=== PATIENT | female | born 1965 | race Caucasian/White ===

== ENCOUNTER 2018-04-30 10:32 | Emergency (ER) | payer OTHER ==
[2018-04-30 11:09] VITALS: BP 146/91
--- NOTE | 2018-04-30 12:21 | UC ---
Throat Pain/Nasal Min HPI - HPI Summary HPI Summary: Pt c/o cough, nasal congestion, sinus pressure and pain X 6 weeks. - History of Current Complaint Chief Complaint: UCGeneralIllness Stated Complaint: CHEST/HEAD CONGESTION/BILAT EAR PAIN Time Seen by Provider: 04/30/18 11:59 Hx Obtained From: Patient ?: No Onset/Duration: Gradual Onset, Lasting Weeks, Still Present Severity: Moderate Pain Intensity: 5 Cough: Productive Associated Signs & Symptoms: Positive: Sinus Discomfort, Nasal Discharge - Epiglottits Risk Factors Epiglottis Risk Factors: Negative - Allergies/Home Medications Allergies/Adverse Reactions: Allergies Allergy/AdvReac Type Severity Reaction Status Date / Time No Known Allergies Allergy Verified 04/30/18 11:05 Home Medications: Home Medications Escitalopram * [Lexapro *] 20 mg PO DAILY 04/30/18 [History Confirmed 04/30/18] Ibuprofen TAB* [Motrin TAB* 600 MG] 600 mg PO Q6H PRN 04/30/18 [History Confirmed 04/30/18] Levothyroxine TAB* [Synthroid TAB*] 50 mcg PO DAILY 04/30/18 [History Confirmed 04/30/18] Omeprazole CAP(NF) [PriLOSEC CAP(NF)] 20 mg PO DAILY 04/30/18 [History Confirmed 04/30/18] PMH/Surg Hx/FS Hx/Imm Hx Previously Healthy: Yes - Surgical History Surgical History: Yes Surgery Procedure, Year, and Place: right knee replacement - Family History Known Family History: Positive: Cardiac Disease - Social History Occupation: Employed Full-time Lives: With Family Alcohol Use: Rare Substance Use Type: None Smoking Status (MU): Never Smoked Tobacco Have You Smoked in the Last Year: No Review of Systems All Other Systems Reviewed And Are Negative: Yes Constitutional: Positive: Chills, Fatigue Skin: Positive: Negative Eyes: Positive: Negative ENT: Positive: Sinus Congestion, Sinus Pain/Tenderness Respiratory: Positive: Cough Cardiovascular: Positive: Negative Gastrointestinal: Positive: Negative Genitourinary: Positive: Negative Motor: Positive: Negative Neurovascular: Positive: Negative Musculoskeletal: Positive: Negative Neurological: Positive: Negative Psychological: Positive: Negative Is Patient Immunocompromised?: No Physical Exam Triage Information Reviewed: Yes Appearance: Ill-Appearing Vital Signs: Initial Vital Signs Temp 97.4 F 04/30/18 11:04 Pulse 69 04/30/18 11:04 Resp 20 04/30/18 11:04 BP 146/91 04/30/18 11:04 Pulse Ox 98 04/30/18 11:04 Vital Signs Reviewed: Yes Eye Exam: Normal ENT: Positive: Nasal congestion, Sinus tenderness Dental Exam: Normal Neck exam: Normal Respiratory Exam: Normal Respiratory: Positive: Normal breath sounds Cardiovascular Exam: Normal Musculoskeletal Exam: Normal Neurological Exam: Normal Psychological Exam: Normal Skin Exam: Normal Throat Pain/Nasal Course/Dx - Differential Dx/Diagnosis Differential Diagnosis/HQI/PQRI: Influenza, Sinusitis, URI Provider Diagnosis: Sinusitis Discharge - Sign-Out/Discharge Documenting (check all that apply): Patient Departure All imaging exams completed and their final reports reviewed: No Studies - Discharge Plan Condition: Stable Disposition: HOME Prescriptions: Albuterol HFA INHALER* [Ventolin HFA Inhaler*] 1 - 2 puff INH Q6H PRN #1 mdi PRN Reason: Sob/Wheezing Amoxicillin PO (*) [Amoxicillin 875 MG (*)] 875 mg PO Q12H #20 tab Benzonatate CAP* [Tessalon 100 MG CAP*] 200 mg PO Q8H PRN #30 cap PRN Reason: Cough Cetirizine* [ZyrTEC 10 MG TAB*] 10 mg PO DAILY #10 tab predniSONE TAB* [Deltasone 20 MG TAB*] 20 mg PO DAILY #4 tab Patient Education Materials: Sinusitis (ED) Referrals: Denise Pacheco [Primary Care Provider] - If Needed - Billing Disposition and Condition Condition: STABLE Disposition: Home
== END 2018-04-30 12:31 | disposition home or self-care (01) ==
LOC: UCCORT 10:32
DX: J32.9 Chronic sinusitis, unspecified (principal)
CPT/HCPCS: 99212; G0463

== ENCOUNTER 2019-01-08 10:44 | Emergency (ER) | payer BC, OTHER ==
[2019-01-08 11:41] VITALS: BP 134/92
--- NOTE | 2019-01-08 12:03 | UC ---
Complaint Female HPI - HPI Summary HPI Summary: 53 year old female presents with c/o two day sx of dysuria, urgency, and frequency. Notes lower back ache, no flank pain nor tenderness. No abdominal pain, nausea, nor vomiting. - History Of Current Complaint Chief Complaint: UCGU Stated Complaint: URINARY Time Seen by Provider: 01/08/19 11:36 Hx Last Menstrual Period: N/A Onset/Duration: Sudden Onset, Lasting Days - two Pain Intensity: 3 Associated Signs And Symptoms: Positive: Back Pain. Negative: Fever, Vaginal Discharge, Nausea, Vomiting(# Of Episodes =) - Allergies/Home Medications Allergies/Adverse Reactions: Allergies Allergy/AdvReac Type Severity Reaction Status Date / Time No Known Allergies Allergy Verified 01/08/19 11:41 Home Medications: Home Medications Cetirizine* [ZyrTEC 10 MG TAB*] 10 mg PO DAILY PRN 01/08/19 [History Confirmed 01/08/19] PMH/Surg Hx/FS Hx/Imm Hx Endocrine History: Hypothyroidism Psychological History: Depression - Surgical History Surgical History: Yes Surgery Procedure, Year, and Place: right knee replacement - Family History Known Family History: Positive: Cardiac Disease - Social History Alcohol Use: Occasionally Substance Use Type: None Smoking Status (MU): Never Smoked Tobacco Have You Smoked in the Last Year: No Review of Systems All Other Systems Reviewed And Are Negative: Yes Constitutional: Negative: Fever, Chills, Fatigue Skin: Negative: Rash, Bruising Eyes: Positive: Negative ENT: Positive: Negative Respiratory: Positive: Negative Cardiovascular: Positive: Negative Gastrointestinal: Negative: Abdominal Pain, Vomiting, Diarrhea, Nausea Genitourinary: Positive: Dysuria, Hematuria, Frequency, Urgency Motor: Positive: Negative Neurovascular: Positive: Negative Musculoskeletal: Positive: Other: - lower lumbar back ache Neurological: Positive: Negative Psychological: Positive: Negative Is Patient Immunocompromised?: No Physical Exam Triage Information Reviewed: Yes Appearance: Well-Appearing, No Pain Distress Vital Signs: Initial Vital Signs Temp 99.3 F 01/08/19 11:37 Pulse 80 01/08/19 11:37 Resp 15 01/08/19 11:37 BP 134/92 01/08/19 11:37 Pulse Ox 99 01/08/19 11:37 Vital Signs Reviewed: Yes ENT: Positive: Normal ENT inspection Neck: Positive: Supple, Nontender, No Lymphadenopathy Respiratory: Positive: Lungs clear, Normal breath sounds Cardiovascular: Positive: RRR, No Murmur Abdomen Description: Positive: Soft, Other: - mild left lower quadrant tenderness, no masses guarding nor rebound.. Negative: CVA Tenderness (R), CVA Tenderness (L) Musculoskeletal Exam: Normal Neurological Exam: Normal Psychological Exam: Normal Skin Exam: Normal Complaint Female Dx - Course Course Of Treatment: Offered CT to evaluate for possible kidney stone, declined. Recommended to follow-up with PCP or Urologist if her symptoms persist or worsen despite antibiotics. - Differential Dx/Diagnosis Differential Diagnosis/HQI/PQRI: Ureteral Stone Provider Diagnosis: Urinary tract infection Discharge ED - Sign-Out/Discharge Documenting (check all that apply): Patient Departure All imaging exams completed and their final reports reviewed: No Studies - Discharge Plan Condition: Stable Disposition: HOME Prescriptions: Cephalexin CAP* [Keflex 500 CAP*] 500 mg PO TID 10 Days #30 cap Patient Education Materials: Urinary Tract Infection in Women (ED) Referrals: Denise Pacheco [Primary Care Provider] - Keara MIN,Armando [Medical Doctor] - Additional Instructions: Drink plenty of water, take all antibiotics as prescribed. If symptoms persist or worsen follow-up with your Primary Care Physician or Urologist. If fever or severe pain develop, recommend further evaluation in the Emergency Department. - Billing Disposition and Condition Condition: STABLE Disposition: Home
== END 2019-01-08 12:16 | disposition home or self-care (01) ==
LOC: UCCORT 10:44
DX: N39.0 Urinary tract infection, site not specified (principal)
CPT/HCPCS: 81003; 87077; 87086; 87186; 99212; G0463